=== PATIENT | male | born 1970 | race Caucasian/White ===

== ENCOUNTER 2022-02-07 07:02 | Day surgery (SDC) | payer OTHER ==
[~2022-02-07] VITALS: Ht 167.6 cm; Wt 86.0 kg
[~2022-02-07 07:02] MED LIST: ASPI81TA87 PO; ATOR20TA86 PO; CARV12.530 PO; HYDR50TA36 PO; PATI8.4P PO; SEVE800 PO; SODIUM CHLORIDE 0.9% 1,000 ML IV ONE; SODIUM CHLORIDE 0.9% 1,000 ML ONE; SUCR500T PO
[2022-02-07] MEDS ORDERED: DIAZEPAM 5 MG TABLET ONE (07:46)
[2022-02-07] MEDS ORDERED: DiphenhydrAMINE HCL 50 MG CAPSULE ONE (07:46)
[2022-02-07] MEDS ORDERED: ASPIRIN 81 MG CHEWABLE TABLET ONE (07:46)
[2022-02-07 07:56] LABS: GLUCOMETER DEV NAME(LOC) SDS.; GLUCOSE,POINT OF CARE 257 MG/DL (70-110)
[2022-02-07] MEDS ORDERED: LINA5TAB PO (08:34)
[2022-02-07] MEDS ORDERED: GLIP2.5T17 PO (08:35)
[2022-02-07] MEDS ORDERED: ASPIRIN 81 MG CHEWABLE TABLET PO ONE (09:00)
[2022-02-07] MEDS ORDERED: DiphenhydrAMINE HCL 50 MG CAPSULE PO ONE (09:00)
[2022-02-07] MEDS ORDERED: DIAZEPAM 5 MG TABLET PO ONE (09:00)
[2022-02-07] MEDS ORDERED: LIDOCAINE/PF 1% 30 ML VIAL ONE (09:27)
[2022-02-07] MEDS ORDERED: SODIUM BICARBONATE 50 MEQ/50 ML VIAL ONE (09:27)
[2022-02-07] MEDS ORDERED: IOHEXOL 300 MG/ML 150 ML VIAL ONE (09:27)
[2022-02-07] MEDS ORDERED: IOHEXOL 300 MG/ML 100 ML VIAL ONE (09:28)
[2022-02-07] MEDS ORDERED: HEPARIN SODIUM 1000 UNITS/NS 1,000 ML ONE (09:28)
[2022-02-07] MEDS ORDERED: IOHEXOL 300 MG/ML 50 ML VIAL ONE (09:28)
[2022-02-07] MEDS ORDERED: FentaNYL CITRATE PF 100 MCG/2 ML VIAL ONE (09:29)
[2022-02-07] MEDS ORDERED: MIDAZOLAM HCL 2 MG/2 ML VIAL ONE (09:29)
[2022-02-07 09:51] VITALS: BP 168/86
[2022-02-07] MEDS ORDERED: HEPARIN SODIUM 1000 UNITS/NS 1,000 ML IARTER ONE (10:00)
[2022-02-07] MEDS ORDERED: FentaNYL CITRATE PF 100 MCG/2 ML VIAL IVP ONE ×3 (10:00→10:45)
[2022-02-07] MEDS ORDERED: LIDOCAINE 1% 30 ML/SOD BICARB 8.4% 4 ML SQ ONE (10:00)
[2022-02-07] MEDS ORDERED: MIDAZOLAM HCL 2 MG/2 ML VIAL IVP ONE (10:00)
[2022-02-07] MEDS ORDERED: IOHEXOL 300 MG/ML 150 ML VIAL IARTER ONE (10:00)
[2022-02-07] MEDS ORDERED: HEPARIN SODIUM,PORCINE 5,000 UNITS/ML VIAL IVP ONE ×3 (10:30→10:45)
[2022-02-07] MEDS ORDERED: GLIP5 PO (10:42)
[2022-02-07] MEDS ORDERED: TICAGRELOR 90 MG TABLET ONE ×2 (10:51→13:09)
[2022-02-07 10:56] VITALS: BP 177/97
[2022-02-07] MEDS ORDERED: TICAGRELOR 90 MG TABLET PO ONE ×2 (11:00→16:00)
== END 2022-02-07 16:10 | disposition home or self-care (01) ==
LOC: CATHLAB 07:02
PROVIDERS: ATTEND Internal Medicine Interventional Cardiology
DX: R94.39 Abnormal result of other cardiovascular function study (principal); I25.10 Atherosclerotic heart disease of native coronary artery without angina pectoris; Z79.899 Other long term (current) drug therapy; Z87.891 Personal history of nicotine dependence; Z98.890 Other specified postprocedural states
CPT/HCPCS: 82962; 92978; 93005; 93458; 99152; 99153; C1757; C1760; C1874; C1887; C9600; J1644; J2250; J3010; J3490 ×2; J7030; Q9967 ×3; 75960; 92920; 92928